=== PATIENT | female | born 1980 | race Caucasian/White ===

== ENCOUNTER 2017-01-11 18:38 | Emergency (ER) | payer SELFPAY ==
[~2017-01-11] VITALS: Ht 152.4 cm; Wt 91.0 kg
[2017-01-11 20:12] VITALS: BP 124/71
[2017-01-11] MEDS ORDERED: KETOROLAC 30MG/ML VIAL IV STA (20:23)
== END 2017-01-11 20:53 | disposition left against medical advice (07) ==
LOC: ER 18:48
DX: R07.9 Chest pain, unspecified (principal); Z88.0 Allergy status to penicillin; Z88.8 Allergy status to other drugs, medicaments and biological substances
CPT/HCPCS: 93005; 99283; J1885; Z7610; 99285